=== PATIENT | female | born 1995 | race Two or more races ===

== ENCOUNTER 2022-05-05 13:13 | Outpatient (CLI) | payer OTHER, SELFPAY ==
[2022-05-05 16:42] LABS: Hepatitis B Surface Antigen* Negative (Negative)
[2022-05-05 16:51] LABS: HIV 1/2/P24 Combo Screen* Negative (Negative)
[2022-05-05 17:00] LABS: Hepatitis C Virus Antibody* Negative (Negative)
[2022-05-05 17:47] LABS: Chlamydia DNA Amplified* NOT DETECTED (No Detected); GC DNA Amplified* NOT DETECTED (No Detected)
[2022-05-07 17:30] LABS: Varicella-Zoster Virus Ab, IgG 847.4 IV
[2022-05-07 17:36] LABS: Rubella Antibody IgG 23.5 IU/mL
[2022-05-07 18:47] LABS: Rapid Plasma Reagin (RPR) Non Reactive (Non Reactive)
== END 2022-05-05 13:14 | disposition home or self-care (01) ==
PROVIDERS: Visit Provider Obstetrics & Gynecology
DX: Z36.89 Encounter for other specified antenatal screening (principal); O99.342 Other mental disorders complicating pregnancy, second trimester; F41.9 Anxiety disorder, unspecified; Z3A.24 24 weeks gestation of pregnancy; G43.909 Migraine, unspecified, not intractable, without status migrainosus
CPT/HCPCS: 86592; 86703; 86762; 86787; 86803; 86850; 86900; 86901; 87340; 87491; 87591

== ENCOUNTER 2022-06-03 13:58 | Outpatient (CLI) | payer OTHER, SELFPAY ==
--- NOTE | 2022-06-03 14:00 | CRLHL7_ITS ---
For Patients: As a result of the Century Cures Act, medical imaging exams and procedure reports are released immediately into your electronic medical record. You may view this report before your referring provider. If you have questions, please contact your health care provider. INDICATION: Evaluate anatomy, 3rd trimester. COMPARISON: none TECHNIQUE: Real time clemente scale imaging of the fetus was performed as well as color Doppler analysis of the umbilical vessels. FINDINGS: Sonographic imaging demonstrates a single living intrauterine gestation. Fetus demonstrates a regular cardiac rate of 149 beats per minute. Fetus has a vertex position. The placenta lies posteriorly without evidence of placenta previa. Edge of the placenta is located 9 cm from the internal cervical os. Amniotic fluid volume appears normal. Single deepest vertical pocket: 7.0 cm. The cervix is closed and measures 4.0 cm in length. The composite ultrasound gestational age is calculated at 29 weeks 2 days with an estimated sonographic due date of 08/17/2022. The estimated weight is 1367 grams which lies at the 59th %. The following biometric measurements were obtained: Biparietal diameter: 7.1 cm/28 weeks 4 days 31st% Head circumference: 27.0 cm/29 weeks 3 days 39th% Abdominal circumference: 25.3 cm/29 weeks 3 days 67th% Femur length: 5.5 cm/29 weeks 1 day 47th% The HC/AC ratio measures: 1.07 range (0.99-1.20) On anatomic survey, there is a normal appearance of the cerebral ventricles, cavum septi pellucidi, cisterna magna and cerebellum. The nose, lips, and facial profile appear normal. The cervical, thoracic and lumbar spine are well visualized and appear normal. There is a normal four-chamber heart view and the left and right ventricular outflow tracts appear normal. The diaphragm and stomach appear normal. The kidneys and bladder also appear normal. There is a normal three-vessel cord and cord insertion site. The four extremities appear normal. IMPRESSION: Normal OB ultrasound exam with concordance of clinical and sonographic dating. No intrinsic abnormalities noted on anatomic survey given limitations of 3rd trimester screening. Dictated by Davis Parekh MD @ 06/03/2022 3:20:25 PM (Electronically Signed)
== END 2022-06-03 13:59 | disposition home or self-care (01) ==
LOC: US 13:59
PROVIDERS: Visit Provider Obstetrics & Gynecology
DX: Z34.93 Encounter for supervision of normal pregnancy, unspecified, third trimester (principal); Z3A.29 29 weeks gestation of pregnancy
CPT/HCPCS: 76805

== ENCOUNTER 2022-07-14 08:00 | Outpatient (CLI) | payer OTHER, SELFPAY ==
--- NOTE | 2022-07-14 08:15 | CRLHL7_ITS ---
For Patients: As a result of the Century Cures Act, medical imaging exams and procedure reports are released immediately into your electronic medical record. You may view this report before your referring provider. If you have questions, please contact your health care provider. INDICATION: Third trimester scan, evaluate growth. SIZE SMALLER THAN DATES COMPARISON: 06/03/2022 TECHNIQUE: Real time clemente scale imaging of the fetus was performed. FINDINGS: Sonographic imaging demonstrates a single living intrauterine gestation. Fetus demonstrates a regular cardiac rate of 136 beats per minute. Fetus has a vertex position. The placenta lies posterior. Amniotic fluid volume appears normal and there is a single deepest vertical pocket: 5.1 cm. The estimated weight is 2541gm which lies at the 55th %. On the prior OB ultrasound exam dated 06/03/2022 the estimated weight was at the 59th%. BPD 43rd percentile. HC 61st percentile. AC 63rd percentile. FL 45th percentile. The HC/AC ratio measures 1.04 range (0.93-1.11). IMPRESSION: Sonographic gestational age 35 weeks 0 days and sonographic due date 08/18/2022. Good correlation with dates. Normal interval growth. Estimated weight 55th percentile. Abdominal circumference 63rd percentile. Dictated by Davis Parekh MD @ 07/15/2022 12:06:07 PM (Electronically Signed)
== END 2022-07-14 08:01 | disposition home or self-care (01) ==
PROVIDERS: Visit Provider Obstetrics & Gynecology
DX: O36.5930 Maternal care for other known or suspected poor fetal growth, third trimester, not applicable or unspecified (principal); Z3A.35 35 weeks gestation of pregnancy
CPT/HCPCS: 76816

== ENCOUNTER 2022-07-29 11:57 | Outpatient (CLI) | payer OTHER, SELFPAY ==
[2022-07-30 11:29] LABS: Strep B DNA Probe POSITIVE (Negative); Strep B Pen/Amox Allergy No
== END 2022-07-29 11:58 | disposition home or self-care (01) ==
LOC: NFLDREF 11:57
PROVIDERS: Visit Provider Obstetrics & Gynecology
DX: Z34.90 Encounter for supervision of normal pregnancy, unspecified, unspecified trimester (principal)
CPT/HCPCS: 87081; 87653

== ENCOUNTER 2022-08-18 16:07 | Inpatient (IN) | payer OTHER, SELFPAY ==
[2022-08-18 16:27] VITALS: BP 119/65; PULSE 91
[2022-08-18 16:30] VITALS: RESP 16; TEMP 36.5
[2022-08-18 16:59] LABS: SARS Antigen* negative (Negative)
--- NOTE | 2022-08-18 17:24 | P.LDBA_ITS ---
Subjective History of Present Illness Date Seen: 08/18/22 Narrative: Patient is being admitted to Labor and Delivery for IOL due to suspected cholestasis of . She is a 27 year old at 39 4/7 weeks gestation. Her full history and physical was dictated by Dr. WHITE on 08/03/22. Please see this for details. Patient presents today to clinic with concerns of itchiness in her body, mostly palms and feet. Worst at night. Believed this was associated with allergic reaction to OTC meds for cold symptoms. No history of skin rash. Patient had discontinued these medications now for more than 1-2 weeks and symptoms continued. After discussion of suspicion for ICP at term and recom mendation for delivery, patient and decided to stay in tonight to start IOL. Comments: Specific Issues/Plans GBS (+): no allergy. Ampicillin for GBS prophylaxis Spouse: Ronny Baby: Yoly Worthington 1. Transfer OB care at 24 weeks from [place], O+ Blood type 2. Migraine headaches 3. Anxiety -Referral to psychotherapy 4. PCOS -History of Metformin use for management of irregular bleeding, she had no issues getting 5.? Anemia, Hb 10.4 at 28 weeks.? Iron supplementation twice daily.? 6. COVID positive at 36 weeks on 07/29/22 at her appointment. 7. No previous pap documented.?Needs a pap w/ HPV co-testing at her 6 week visit. OB - H&P: Exam Physical Exam: Vital signs: Temp Pulse Resp BP 97.7 F 91 16 119/65 08/18/22 16:30 08/18/22 16:27 08/18/22 16:30 08/18/22 16:27 Narrative: Cervix: 1.5/60%/vx/-2 NST: 150bpm/positive accelerations/negative decelerations/moderate variability/irregular uterine contractions Routine HEENT Exam: Head: Absent normocephalic OB - Problem Based A/P Additional Plan (1) : Status: Acute Plan IOL due to suspected ICP at term: 1. Cook catheter placed, 50mL in each balloon. Will start IV oxytocin at 9:00 p.m. as per protocol. 2. GBS positive, will start ampicillin at 3:00 a.m., sooner if patient becomes symptomatic or any significant changes happen before this time 3. Continuos monitoring while oxytocin infusion 4. Patient is planning epidural, discussed ideal timing between asking for the epidural and able to get it. 5. Lab work ordered upon admission, mild transaminitis, otherwise normal. Delivery/Labor/Induction Plan Plan: induction Induction method: Intracervical balloon catheter
[2022-08-18 17:43] LABS: Basophils Absolute Auto 0.03 K/uL (0.00-0.30); Basophils Percent Auto 0.3 % (0.0-3.0); Eosinophils Absolute Auto 0.05 K/uL (0.00-0.50); Eosinophils Percent Auto 0.5 % (0.0-7.0); Hematocrit 37.8 % (33.0-51.0); Hemoglobin* 12.7 gm/dL (12.0-16.0); Immature Granulocytes Abs Auto 0.05 K/uL (0.00-0.30); Immature Granulocytes Pct Auto 0.5 %; Lymphocytes Percent Auto 15.5 % (20-44); Mean Corpuscular HGB Conc 34 gm/dL (32-36); Mean Corpuscular Hemoglobin 28 pg (26-34); Mean Corpuscular Volume 84 fL (80-100); Monocytes Percent Auto 6.3 % (0.0-11.0); Neutrophils Percent Auto 76.9 % (42.0-72.0); Platelet Count* 236 K/uL (140-440); RDW Coefficient of Variation % 13.9 % (11.5-15.5); Red Blood Count 4.51 m/uL (4.00-5.20); White Blood Count* 9.47 K/uL (4.50-11.00)
[2022-08-18 17:44] LABS: Slide Review Reflex No
[2022-08-18 18:02] LABS: Creatinine* 0.3 mg/dL (0.5-1.5); Estimated Glomerular Filt Rate 149 ml/min
[2022-08-18 18:03] LABS: Alanine Aminotransferase* 40 U/L (4-35); Aspartate Amino Transferase* 50 U/L (12-35); Blood Urea Nitrogen* 10 mg/dL (5-24)
[2022-08-18 18:06] VITALS: BMI 23.6
[2022-08-18 18:15] LABS: Est. Creatinine Clearance* 253.47
[2022-08-18 19:25] VITALS: BP 109/56; PULSE 81; RESP 18; TEMP 36.6
[2022-08-18] MEDS: hydrOXYzine pamoate 25 MG CAPSULE 100 MG PO (22:25)
[2022-08-18] MEDS: MORPHINE 10 MG/ML inj IM (22:27)
[2022-08-18 22:34] VITALS: PULSE 77; O2SAT 95
[2022-08-18 22:36] VITALS: BP 104/60; PULSE 72; RESP 16; TEMP 36.8
[2022-08-19] VITALS (67 sets, daily range): BP systolic 81–115; BP diastolic 44–73; PULSE 64–126; RESP 16–18; TEMP 36.8–37.2; O2SAT 90–100
[2022-08-19] MEDS: LACTATED RINGERS 1000 ML 1,000 ML 124 ML IV (00:13)
[2022-08-19] MEDS: OXYTOCIN 30 unit/500 ML in NS 30 UNIT/500 ML BAG IVPB (00:13)
[2022-08-19] MEDS: AMPICILLIN 2 GM in 0.9 % SODIUM CHLORIDE Mini-bag 100 ML IVPB (02:55)
[2022-08-19] MEDS: AMPICILLIN 1 GM in 0.9 % SODIUM CHLORIDE Mini-bag 100 ML IVPB ×3 (06:51→14:44)
[2022-08-19] MEDS: LACTATED RINGERS 1000 ML 1,000 ML 116 ML IV (08:53)
[2022-08-19] MEDS: ONDANSETRON 2 MG/ML inj 4 MG IV (09:25)
[2022-08-19] MEDS: fentaNYL 100 MCG/2 ML inj IVP (10:50)
--- NOTE | 2022-08-19 11:34 | P.OBPN_ITS ---
Subjective Time Seen by Provider: 08:30 Date Seen: 08/19/22 Narrative: Subjective: Cinthya is mildly uncomfortable with contractions, she states she is very tired as she got 3 hours of sleep overnight. Pitocin: 8 milliunits/minute. Verbal consent obtained artificial rupture of membranes. Vital signs: Per electronic medical record. EFM: Baseline 150s, positive accelerations, negative decelerations, moderate variability, reactive. Category 1. [place]: Contractions every 2-6 minutes. SVE: 3 cm/60 %/-1/mid/soft. AROM: Air-fluid Assessment: 27-year-old 1 para 0 at 39 weeks 5 days gestation undergoing induction of labor due to intrahepatic cholestasis of . Plan: 1. Continue Pitocin per labor induction protocol. 2. Considering epidural for labor analgesia 3. Ampillicin for GBS prophylaxis: s/p 2 doses. Objective Vital Signs: Last Vital Signs Temp 98.6 F 08/19/22 05:54 Pulse 85 08/19/22 10:21 Resp 16 08/19/22 05:54 BP 101/65 08/19/22 10:21 Pulse Ox 99 08/19/22 11:26
[2022-08-19] MEDS: LIDOCAINE 2% (PF) 5 ML VIAL EPIDURAL (12:29)
[2022-08-19] MEDS: ROPIVACAINE 0.2% 100 ml 100 ML 12 MG EPIDURAL (12:29)
--- NOTE | 2022-08-19 12:35 | PM.ANBPRC ---
[facility] Medical History (Updated 08/18/22 @ 14:59 by Jeni Irene MD) History of anemia Surgical History (Updated 05/05/22 @ 14:55 by Jeni Irene MD) History of appendectomy History of dilation and curettage Social History Smoking Status: Never smoker Little interest or pleasure in doing things: not at all Feeling down, depressed, or hopeless: several days Meds Home Medications and Allergies Home Medications Medication Instructions Recorded Confirmed Type 103-folic acid 400 1 tab PO DAILY 05/05/22 08/18/22 History mcg-omeg3 32.5 mg-dha-fish oil chew tablet ( with DHA and Folic Acid) ferrous sulfate 325 mg (65 mg 325 mg PO QDAY 06/15/22 08/18/22 History iron) tablet (Feosol) Allergies Allergy/AdvReac Type Severity Reaction Status Date / Time No Known Drug Allergies Allergy Verified 08/18/22 17:41 Results Labs Labs: Laboratory Results - last 24 hr 08/18/22 08/18/22 08/18/22 16:31 17:30 17:30 WBC 9.47 RBC 4.51 Hgb 12.7 Hct 37.8 MCV 84 MCH 28 MCHC 34 RDW Coeff of Cole 13.9 Plt Count 236 Neut % (Auto) 76.9 H Lymph % (Auto) 15.5 L [place] % (Auto) 6.3 Eos % (Auto) 0.5 Baso % (Auto) 0.3 Neut # (Auto) 7.30 H Lymph # (Auto) 1.50 [place] # (Auto) 0.60 Eos # (Auto) 0.05 Baso # (Auto) 0.03 BUN Creatinine Estimated Creat Clear Estimated GFR AST ALT SARS-CoV-2 Ag (Rapid) negative Blood Type O Positive Antibody Screen NEGATIVE 08/18/22 17:30 WBC RBC Hgb Hct MCV MCH MCHC RDW Coeff of Cole Plt Count Neut % (Auto) Lymph % (Auto) [place] % (Auto) Eos % (Auto) Baso % (Auto) Neut # (Auto) Lymph # (Auto) [place] # (Auto) Eos # (Auto) Baso # (Auto) BUN 10 Creatinine 0.3 L Estimated Creat Clear 253.47 Estimated GFR 149 AST 50 H ALT 40 H SARS-CoV-2 Ag (Rapid) Blood Type Antibody Screen Vital Signs Vital Signs: Last Vital Signs Temp 98.6 F 08/19/22 05:54 Pulse 72 08/19/22 12:32 Resp 16 08/19/22 05:54 BP 98/59 L 08/19/22 12:32 Pulse Ox 93 08/19/22 12:34 Weight: 64.229 kg Height: 165.1 cm Anesthesia Procedures Epidural Insertion Patient Location: OB Start Time: 12:00 Stop Time: 12:35 Start Date: 08/19/22 Stop Date: 08/19/22 Reason for Block: procedure for pain Patient Position: sitting Performed By: Saad Mcadams Preanesthetic Checklist: IV checked, risks and benefits discussed, surgical consent, monitors and equipment checked, pre-op evaluation, timeout performed and anesthesia consent Prep: chlorhexidine gluconate Monitoring: blood pressure monitoring, continuous pulse oximetry and heart rate Approach: midline Vertebral Space: lumbar (1-5) Epidural Technique: PARTH saline Needle Type: Tuohy needle Injection Technique: continuous catheter Needle gauge: 17 Needle Length (cm): 10 cm Needle Insertion Depth (cm): 4 Catheter Gauge: 20 Catheter Type: multi-orifice Catheter at skin depth (cm): 9 Test Dose Result: negative and lidocaine 1.5% with epinephrine 1 to 200,000
[2022-08-19] MEDS: LACTATED RINGERS 1000 ML 1,000 ML IV (12:37)
[2022-08-19] MEDS: LORATADINE 10 MG TABLET PO (14:48)
--- NOTE | 2022-08-19 18:53 | P.OBPRC_ITS ---
Procedure Procedure Done: [facility] Procedure Details: Cinthya is a 27 year-old G 1P 0 now 1 admitted on 08/18/2022 at 4:30 p.m. at 39 Weeks, 4 Days gestation for suspected intrahepatic cholestasis of . She had a Cook catheter placed followed by low-dose Pitocin, Pitocin by per induction protocol started at 7:00 a.m. on 08/19/2022 AROM occurred at 8:17 a.m. on 08/19/2022 with clear fluid. Labor Analgesia: Fentanyl and epidural Pitocin: Yes: Maximum Pitocin dose 8 milliunits/minute Labor onset: 08/19/2022 at to 5:00 p.m.. Complete: 08/19/2022 at 4:58 p.m.. Pushin08/19/2022 at 5:00 p.m.. heart tones during second stage were: Category 2: Moderate variability, early appearing decelerations the end of the 2nd stage 2 heart rate of 80s-90s with . Reassuring. At 5:55 p.m. a viable female infant delivered in vertex direct OA presentation with restitution to LOT. The was delivered over a first-degree vaginal laceration via spontaneous vaginal delivery. The was placed on maternal abdomen. Cord was clamped and cut after a after approximately 5 minutes when the cord stopped pulsing. Nose and mouth were bulb suctioned. weight: 7 lb 2 oz. 9 at 1 minute and 9 at 5 minutes. Shoulder dystocia: No. Nuchal cord: No Placenta delivered spontaneously and complete at 6:14 p.m. with a 3 vessel cord. Laceration(s): First-degree vaginal laceration along the hymenal ring. Repaired using 4-0 Vicryl suture in a running locked manner. Blood loss: 100 mL. Blood loss measurement type: Quantitative Sponge and needles counts are correct. Specimen: None Mother and infant were stable after delivery. Infant's name: Elin The patient is planning on breast feeding. Events: Labor Induction Intrapartal Events: Labor Induction Induction method: other (Intracervical balloon catheter followed by Pitocin per induction protocol and AROM.) Delivery monitor: external FHT Route of delivery: Laceration description: Vaginal - 1st Degree Delivery repair: Vicryl Anesthesia type: Epidural Disposition: floor [place] Infant Gender: Female presentation: vertex Placental Delivery Description: Spontaneous Cord Description: 3 Vessels
[2022-08-19] MEDS: ACETAMINOPHEN 500 MG TABLET 1000 MG PO (19:18)
[2022-08-19] MEDS: CALCIUM CARBONATE 500 MG CHEW PO (19:29)
[2022-08-19] MEDS: IBUPROFEN 600 MG TABLET PO (21:44)
[2022-08-20 00:10] VITALS: BP 105/68; PULSE 72; RESP 16; TEMP 36.5; O2SAT 97
[2022-08-20] MEDS: ACETAMINOPHEN 500 MG TABLET 1000 MG PO ×4 (02:03→20:46)
[2022-08-20] MEDS: IBUPROFEN 600 MG TABLET PO ×3 (04:24→17:07)
[2022-08-20 04:59] VITALS: BP 78/43; PULSE 62; RESP 16; TEMP 36.4; O2SAT 97
[2022-08-20 07:27] LABS: Hemoglobin* 10.8 gm/dL (12.0-16.0)
--- NOTE | 2022-08-20 07:37 | PM.OBPNVD1 ---
OB - PN:Subj Subjective Time Seen by Provider: 07:37 Date Seen: 08/20/22 Interval history: Subjective: Cinthya is a 27 y.o.G2 now P1 who was admitted to L & D for IOL. ?She had an uncomplicated NVD. ? The patient feels well. ?The pain is well controlled with current medications. ?She has no new complaints. ?She is breast feeding and reports things are going well.? the patient has done well.? Vitals have been stable.? She has remained afebrile.? Has a good appetite, is tolerating a general diet. ?She is voiding without difficulty.? She is passing gas and has not had a bowel movement.? She is ambulating and denies any dizziness.? Has small amount of rubra lochia. Patient comments OB post-: no complaints, pain well controlled, tolerating diet and flatus present status: and doing well feeding status: exclusively OB - PN: Obj Exam Physical Exam: Vital signs: Temp Pulse Resp BP Pulse Ox O2 Del Method 97.6 F 62 16 78/43 L 97 08/20/22 04:59 08/20/22 04:59 08/20/22 04:59 08/20/22 04:59 08/20/22 04:59 08/20/22 04:59 Narrative: Objective: VSS GENERAL APPEARANCE: ?normal affect, alert, no distress MOOD: ?appropriate HEENT: normocephalic, neck supple, full ROM CHEST: ?Symmetrical chest wall movement. ?Normal respiratory effort. ?Clear to auscultation HEART: ?regular rate and rhythm ABDOMEN: ?soft, non-tender. Uterine fundus is firm, 2 above Umbilicus, Midline and is appropriate for the stage of recovery. ?Bowel sounds present. PERINEUM: mild edema of the perineum, there is a 1st degree laceration that is healing well per RN. EXTREMITIES: ?normal and no edema OB - PN: Obj Data Labs Labs: Laboratory Results - last 24 hr 08/20/22 07:20 Hgb 10.8 L OB - PN: A/P Vaginal Delivery Assessment and Plan (1) state: Status: Acute (2) Lactating mother: Status: Acute Plan day: 1 Plan: routine care Comments: Assessment/Plan G 2 P 1 status post uncomplicated NVD. Lactating Mother 1. ?Continue route PP cares 2. ?. ?May see if desired 3. ?Anticipate discharge home tomorrow
[2022-08-20] MEDS: DOCUSATE SODIUM 100 MG CAPSULE PO (08:01)
[2022-08-20 08:03] VITALS: BP 83/52; PULSE 69; RESP 16; TEMP 36.4; O2SAT 96
[2022-08-20 12:36] VITALS: BP 103/69; PULSE 79; RESP 18; TEMP 36.5; O2SAT 97
[2022-08-20 17:05] VITALS: BP 91/63; PULSE 79; RESP 18; TEMP 36.7; O2SAT 97
[2022-08-20 20:45] VITALS: BP 94/59; PULSE 68; RESP 14; TEMP 36.8; O2SAT 99
[2022-08-20 22:46] LABS: Bile Acids, Total 6 umol/L (0-10)
[2022-08-21 02:42] VITALS: BP 100/66; PULSE 79; RESP 16; TEMP 36.6; O2SAT 100
[2022-08-21] MEDS: IBUPROFEN 600 MG TABLET PO (02:44)
[2022-08-21] MEDS: DOCUSATE SODIUM 100 MG CAPSULE PO (08:37)
[2022-08-21] MEDS: LORATADINE 10 MG TABLET PO (08:37)
--- NOTE | 2022-08-21 08:42 | P.DS_ITS ---
DS: Providers Provider Time Seen by Provider: 08:42 Date Seen: 08/21/22 Date of admission: 08/18/22 16:07 Primary care physician: Not a Local Provider Admitting Clinician: Jeni Irene MD Attending Physician on discharge: Fara Christianson MD Date of Discharge: 08/21/22 DS: Diagnosis Discharge Diagnosis (1) (normal spontaneous vaginal delivery): Status: Acute Exam Const: Vital Signs, click to edit/add: Vital Signs - 24 hr 08/20/22 12:36 08/20/22 17:05 08/20/22 20:45 Temperature 97.7 F 98.1 F 98.3 F Pulse Rate [Blood Pressure Cuff] 79 79 68 Respiratory Rate 18 18 14 Blood Pressure [Le ft Arm] 103/69 91/63 94/59 L Pulse Oximetry 97 97 99 Oxygen Delivery Me thod Room Air Room Air Room Air 08/21/22 02:42 Temperature 97.8 F Pulse Rate [Blood Pressure Cuff] 79 Respiratory Rate 16 Blood Pressure [Le ft Arm] 100/66 Pulse Oximetry 100 Oxygen Delivery Me thod Room Air OB - DS: Summary Hospital Course Hospital Course: HOSPITAL COURSE: Cinthya is a 27 year old, G1 now P1 admitted on 08/18/2022 at 39 Weeks, 4 Days gestation for induction of labor due to suspected intrahepatic cholestasis of . She had an uncomplicated vaginal delivery. She delivered a viable female infant. She is breast feeding. the patient has done well. Vitals have been stable. She has remained afebrile. Pre delivery hemoglobin 12.7, post delivery hemoglobin 10.8. Vital Signs: See EMR Discharge Examination GENERAL APPEARANCE: normal affect, alert, no distress MOOD: appropriate CHEST: clear to auscultation and percussion HEART: regular rate and rhythm ABDOMEN: soft, non-tender the uterine fundus is to cm Below Umbilicus, Midline and is appropriate for the stage of recovery. PERINEUM: mild edema of the perineum, there is a Periurethral Laceration 1st degree that is healing well. EXTREMITIES: normal and no edema Discharge Criteria patient is ambulating without assistance, urinating without difficulty, tolerating a regular diet without n/v, and with adequate pain control with po medications. She is normotensive. Disposition: Home/Self Care She is requesting discharge home. [place] Infant Gender: Female Time Spent with Patient Time attestation: Total time spent providing and/or coordinating discharge services: Discharge Plan Discharge Disposition: Home, Self-Care Date of Admission: 08/18/22 16:07 Attending Provider on Discharge: Fara Christianson Primary Care Provider: Provider,Not a Local Condition: Stable Anticipated Discharge Date/Time: 08/21/22 12:30 Discharge Medications: New docusate sodium 100 mg Capsule 100 mg PO DAILY PRN (Reason: constipation) Qty: 100 0RF ibuprofen 600 mg Tablet 600 mg PO Q6H PRNQty: 30 0RF Continued with DHA-Folic Acid 400-32.5 mcg-mg tablet,chewable 1 tab PO DAILY Discontinued ferrous sulfate [Feosol] 325 mg (65 mg iron) tablet 325 mg PO QDAY Discharge Orders: Discharge Order (Routine); Ordered 08/21/22 Ordered By: Fara Christianson Consulting provider completed their portion of the discharge: No Patient Education: Vaginal Delivery (DC) Additional Instructions: Discharge instructions were reviewed with the patient including signs and symptoms of infection and home going medications. ONLY ACTIVITY RESTRICTION: Nothing vaginally for 6 weeks Off Work or School for 6 weeks. Expect some vaginal bleeding for 2-6 weeks . Symptoms to report to doctor: -Bleeding that saturates more than one pad per hour ?-Passing clots larger than the size of a golf ball ?-Pain not relieved by prescribed medication ?-Fever above 100.4 degrees Fahrenheit ?-A foul vaginal odor ?-Difficulty in emotions, mood and functions ?-Thoughts of hurting yourself and/or ?-Painful, reddened area in your breast ?-Any drainage, redness or tenderness in your IV/epidural site ?-Severe headache that doesn't improve after taking medications ?-Changes in vision, including temporary loss of vision, blurred vision, and/or light sensitivity ?-Upper abdominal pain (usually under ribs on the right side) ?-Decrease in urination or painful, frequent urinating ?-Chest pain ?-Shortness of breath ?-Tenderness or pain with redness and/swelling in the calf(s) of your leg All cap: 1. Optional: 2 week visit to discuss control options, answer care questions and screen for anxiety/depression. 2. 6 week visit for physical exam. consultation services are available to all mothers and babies for the first year after delivery.? To make an appointment, please call [phone]. Discharge Diet: Regular Follow Up Appointments: [facility] [Provider Group] Provider,Not a Local [Primary Care Provider] - Forms: [facility] Info Instructions
[2022-08-21 08:47] VITALS: BP 106/62; PULSE 74; RESP 16; TEMP 36.6; O2SAT 99
[2022-08-21] MEDS: ACETAMINOPHEN 500 MG TABLET 1000 MG PO (09:04)
== END 2022-08-21 15:38 | disposition home or self-care (01) | DRG 805 ==
PROVIDERS: Obstetrics & Gynecology; Admitting Provider Obstetrics & Gynecology; Visit Provider Obstetrics & Gynecology
DX: O26.62 Liver and biliary tract disorders in childbirth (principal); K83.1 Obstruction of bile duct; Z37.0 Single live birth; O99.824 Streptococcus B carrier state complicating childbirth; O70.0 First degree perineal laceration during delivery; O99.344 Other mental disorders complicating childbirth; F41.9 Anxiety disorder, unspecified; O99.284 Endocrine, nutritional and metabolic diseases complicating childbirth; E28.2 Polycystic ovarian syndrome; O99.02 Anemia complicating childbirth; D64.9 Anemia, unspecified; Z86.16 Personal history of COVID-19; Z3A.39 39 weeks gestation of pregnancy
CPT/HCPCS: 01967; 36415; 59200; 82239; 82565; 84450; 84460; 84520; 85018; 85025; 86850; 86900; 86901; 87426; 87635; A9270; J0290; J2270; J2405; J2795; J3010; J7120

== ENCOUNTER 2022-08-25 15:53 | Outpatient (CLI) | payer OTHER, SELFPAY ==
--- NOTE | 2022-08-25 16:00 | W.PM.LAC.MC ---
Consult Note - Mom Date of Visit Date of visit: 09/08/22 mental hygiene consultant: Sayra Hobbs Visit Code: Visit Patient's Information Phone number: [phone] : 1 Para: 1 Allergies No Known Drug Allergies Allergy (Verified 09/03/22 10:14) Mother's Medical History: Medical History (Updated 09/03/22 @ 11:12 by Jeni Irene MD cholestasis Delivery Information Delivery type: Vaginal (IOL for possible cholestasis) Weeks Gestation: 39.5 Gestational Age: AGA Weight: 3.232 kg Discharge Weight: 3.065 kg Baby's Information Baby's Age at Visit: 6 days Baby's Provider or Clinic: Joe Reeves NP Jaundice: Yes (to abdomen, TSB = 14.0 on 08/23) Reason for Consult Reason for Consult: concern for latching and weight gain Past Experience Past Experience: No Current Frequency of Day Feedings: about every 1.5 - 2 hours around the clock Both Breasts: Yes Suck: strong Latch: wide Length of Time: 10 - 20 minutes/side Pumping Pumping: Yes (a few times) Quantity Pumped: 1 oz each time (pumped one side only) Supplementing EMB Supplement: Yes (baby has rec'd 1 oz EBM twice since D/C) Formula Supplement: No Baby Elimination Number of Wet Diapers a Day: 4 Number of BM a Day: 6 Breast/Nipple Condition Breast Information: WNL Engorgement: No (milk began to come in on 08/23) Maternal Nipple Condition - Left: Common Nipple Maternal Nipple Condition - Right: Common Nipple Sore Nipples: Yes Onsite Pre-Feed weight: 3.058 kg Post-Feed weight: 3.098 kg Milk Transferred (mL): 40 Pre-Nursing Left Nipple: Within Normal Limits Pre-Nursing Right Nipple: Within Normal Limits Post-Nursing Left Nipple: Within Normal Limits Post-Nursing Right Nipple: Within Normal Limits Assessments/Interventions Assessments/Interventions: Met with mom and this now 6 day old ex- term AGA baby for consult.? Mom reports baby seems to be hungry all the time and is nursing every 1.5 - 2 hours around the clock.? Mom offers both sides and nursing sessions are 10 - 20 minutes/side, baby is sleepy at the breast.? Mom has a [employer] single electric pump and has pumped twice, getting 1 oz total each time.? Dad has supplemented baby with this EBM at two different times so that mom could get a longer stretch of sleep overnight.? Breasts WNL- symmetrical with rounded lower quadrants, intramammary distance is < 1.5 inches.? Nipples are everted and don't flatten or retract on compression; both nipples have a small amount of damage that is scabbing.? Mom reports her milk began to come in on 08/23. Baby hasn't really gained or lost any weight since her NB visit on 08/23 and is 5% below BW at 6 DOL.? POC report baby seems to have equal ROM when turning her head and moving her extremities.? Her palate is WNL.? Both her upper and lower frenulum are WNL as well.? She has a strong suck on a finger.? The tongue extends easily pasts the gum line, has good lateral movement, and she's able to raise it when crying. Mom latched baby to the left side and the latch appeared wide, mom was comfortable.? Baby was sleepy but mom did a good job of keeping her awake and more active at the breast.? She nursed for 15 - 20 minutes, then mom switched her to the right.? This side was more painful initially, but improved when baby's lower lip was flanged out.? She nursed another 10 - 15 minutes and transferred 40 ml. 1. Encouraged mom to continue offering both sides ALD, working to keep her awake and actively nursing.? Suggested she could go back forth a few times as this can help keep babies more alert at the breast.? We reviewed how to take baby off if the latch is uncomfortable so mom's nipples are protected. 2. No medical need to supplement, but dad would like to give EBM once overnight so mom can get a little more sleep. 3. Encouraged mom to pump daily after a morning nursing session and she should get enough for dad to use that night.? Suggested they contact their insurance company about a double sided pump and handouts for [employer] and [facility] were given. 4. Will f/u on 08/30 for a pre and post weight check and on 09/02 or 09/03 for a 2 week WCC. Meds Home Medications and Allergies Home Medications Medication Instructions Recorded Confirmed Type 103-folic acid 400 1 tab PO DAILY 05/05/22 09/03/22 History mcg-omeg3 32.5 mg-dha-fish oil chew tablet ( with DHA and Folic Acid) Allergies Allergy/AdvReac Type Severity Reaction Status Date / Time No Known Drug Allergies Allergy Verified 09/03/22 10:14
== END 2022-08-25 15:54 | disposition home or self-care (01) ==
LOC: OB LAC 15:53
PROVIDERS: Visit Provider Obstetrics & Gynecology
DX: Z39.1 Encounter for care and examination of lactating mother (principal)
CPT/HCPCS: 99211

== ENCOUNTER 2022-09-28 12:32 | Outpatient (CLI) | payer OTHER, SELFPAY ==
[2022-09-28 14:07] LABS: Alanine Aminotransferase* 55 U/L (4-35); Aspartate Amino Transferase* 44 U/L (12-35)
== END 2022-09-28 12:33 | disposition home or self-care (01) ==
PROVIDERS: Visit Provider Obstetrics & Gynecology
DX: K76.89 Other specified diseases of liver (principal); Z39.2 Encounter for routine postpartum follow-up
CPT/HCPCS: 84450; 84460

== ENCOUNTER 2022-10-08 07:08 | Outpatient (CLI) | payer OTHER, SELFPAY ==
--- NOTE | 2022-10-08 07:15 | CRLHL7_ITS ---
For Patients: As a result of the Century Cures Act, medical imaging exams and procedure reports are released immediately into your electronic medical record. You may view this report before your referring provider. If you have questions, please contact your health care provider. INDICATION: Elevated liver enzymes. COMPARISON: None. TECHNIQUE: Real time clemente scale imaging and color Doppler analysis was performed of the right upper quadrant. FINDINGS: The patient`s liver is of normal size and has uniform echogenicity. There is a normal appearance of the hepatic IVC and proximal abdominal aorta. There is no evidence of ascites. The gallbladder is of normal size and there is no evidence of intraluminal stones or sludge. The gallbladder wall measures 1.4 mm in thickness. The common bile duct is of normal size and measures 3.2 mm in diameter at the level of the etelvina hepatis. The pancreas appears normal. There is no evidence of a stone or hydronephrosis within the right kidney. The right kidney measures 10.2 cm in length. IMPRESSION: Normal right upper quadrant ultrasound. Dictated by Mt Simpson MD @ 10/08/2022 10:23:19 AM (Electronically Signed)
== END 2022-10-08 07:09 | disposition home or self-care (01) ==
LOC: US 07:08
PROVIDERS: Visit Provider Obstetrics & Gynecology
DX: R74.01 Elevation of levels of liver transaminase levels (principal)
CPT/HCPCS: 76705

== ENCOUNTER 2022-10-08 08:20 | Outpatient (CLI) | payer OTHER, SELFPAY | END 2022-10-08 08:21 | disposition home or self-care (01) | PROVIDERS: Visit Provider Physician Assistant | DX: R74.01 Elevation of levels of liver transaminase levels (principal); K76.89 Other specified diseases of liver; Z30.9 Encounter for contraceptive management, unspecified | CPT/HCPCS: 80074; 80076; 82239 ==

== ENCOUNTER 2023-03-23 15:12 | Outpatient (CLI) | payer OTHER, SELFPAY ==
[2023-03-23 19:09] LABS: Chlamydia DNA Amplified* NOT DETECTED (No Detected); GC DNA Amplified* NOT DETECTED (No Detected)
== END 2023-03-23 15:13 | disposition home or self-care (01) ==
PROVIDERS: Visit Provider Registered Nurse
DX: N93.0 Postcoital and contact bleeding (principal)
CPT/HCPCS: 84443; 87086; 87491; 87591

== ENCOUNTER 2023-03-28 16:53 | Outpatient (CLI) | payer OTHER, SELFPAY ==
--- NOTE | 2023-03-28 17:00 | CRLHL7_ITS ---
For Patients: As a result of the Century Cures Act, medical imaging exams and procedure reports are released immediately into your electronic medical record. You may view this report before your referring provider. If you have questions, please contact your health care provider. INDICATION: 27 year-old female. Postcoital pain and bleeding. TECHNIQUE: Transvaginal pelvic ultrasound. FINDINGS: Normal-appearing uterus measuring 5.7 x 3.0 x 4.2 cm. Normal endometrial stripe of 5 mm. Normal-sized ovaries without torsion or mass. Small follicles in the ovaries. The right ovary measures 3.4 x 1.8 x 2.3 cm. The left ovary measures 3.1 x 1.6 x 2 cm. Blood flow is documented in the ovaries both arterial and venous. Small amount of free pelvic fluid likely physiologic. IMPRESSION: Normal transvaginal pelvic ultrasound. Dictated by Mt Simpson MD @ 03/30/2023 9:48:29 PM (Electronically Signed)
== END 2023-03-28 16:54 | disposition home or self-care (01) ==
PROVIDERS: Visit Provider Registered Nurse
DX: N93.0 Postcoital and contact bleeding (principal)
CPT/HCPCS: 76830; 93976

== ENCOUNTER 2023-05-09 07:30 | Outpatient (RCR) | payer BC, OTHER, SELFPAY | END 2023-08-17 15:08 | disposition home or self-care (01) | PROVIDERS: Visit Provider Registered Nurse | DX: N39.3 Stress incontinence (female) (male) (principal); N94.2 Vaginismus; R27.8 Other lack of coordination; Z51.89 Encounter for other specified aftercare | CPT/HCPCS: 97110; 97112; 97140; 97161; 97535 ==